=== PATIENT | female | born 1990 | race Caucasian/White ===

== ENCOUNTER 2016-10-17 08:00 | Emergency (ER) | payer OTHER ==
[2016-10-17] MEDS ORDERED: Ketorolac Tromethamine 30 MG/ML VIAL ONE (08:22)
[2016-10-17] MEDS ORDERED: HYDROcodone/Acetaminophen 10/325 mg Tablet ONE (08:22)
--- NOTE | 2016-10-17 09:31 | RAD ---
TWO VIEW RIGHT FOREARM: Indication: Post-traumatic pain. FINDINGS: There is no fracture or dislocation of the right forearm. IMPRESSION: No acute osseous abnormality. POS: JESSE
--- NOTE | 2016-10-17 09:31 | RAD ---
LUMBAR SPINE THREE VIEWS: Indication: Pain, injury. FINDINGS: There is no fracture or subluxation. Vertebral body heights are maintained. IMPRESSION: No acute osseous abnormality of the lumbar spine. POS: JESSE
--- NOTE | 2016-10-17 09:32 | RAD ---
THREE VIEWS OF THE THORACIC SPINE: Indication: Post-traumatic back pain. FINDINGS: There is minimal left convexity curvature of the imaged thoracolumbar spine. No evidence of compress ion fracture or subluxation. IMPRESSION: No acute osseous abnormality. POS: JESSE
--- NOTE | 2016-10-17 09:35 | RAD ---
CERVICAL SPINE THREE VIEWS: History: Trauma. Neck pain. FINDINGS/IMPRESSION: No acute fracture or subluxation is seen. If there is focal tenderness or high clinical suspicion for injury to the cervical spine, further ev aluation with CT scan should be performed. POS: JESSE
[2016-10-17] MEDS ORDERED: diphenhydrAMINE HCl 50 MG/ML 1 ML VIAL ONE (10:13)
--- NOTE | 2016-10-17 10:26 | CT ---
THORACIC SPINE CT NONCONTRAST: Indication: Post-traumatic back pain. FINDINGS: Vertebral body height and alignment of the thoracic spine are maintained. No acute disc space abnorm ality or widening evident. No retropulsion of bone into the vertebral canal. IMPRESSION: No acute osseous abnormality of the thoracic spine. POS: JESSE
--- NOTE | 2016-10-17 11:44 | CT ---
LUMBAR SPINE CT WITHOUT IV CONTRAST: History: 25-year-old female with low back pain following trauma. FINDINGS: No evidence for acute fracture or dislocation. No significant central canal, lateral recess, or fora baldev stenosis. IMPRESSION: Unremarkable lumbar spine CT. No fracture or dislocation. POS: JESSE
== END 2016-10-17 13:12 | disposition home or self-care (01) ==
LOC: MADERS 08:00
DX: M62.830 Muscle spasm of back (principal); V49.9XXA Car occupant (driver) (passenger) injured in unspecified traffic accident, initial encounter
CPT/HCPCS: 72040; 72072; 72100; 72128; 72131; 96374; 96375; J1200; J1885; J2270